=== PATIENT | female | born 1935 | race Caucasian/White ===

== ENCOUNTER 2017-02-05 15:05 | Observation (INO) | payer MEDICARE, BC ==
[2017-02-07] MEDS ORDERED: KLONOPIN DPS0.5 MG PO (10:37)
[2017-02-07] MEDS ORDERED: LOTENSIN DPS20 MG PO (10:37)
[2017-02-07] MEDS ORDERED: CARDIZEM60 MG PO (10:37)
[2017-02-07] MEDS ORDERED: ELIQUIS5 MG PO (10:38)
[2017-02-07] MEDS ORDERED: ATENOLOL50 MG PO (10:38)
[2017-07-14] MEDS ORDERED: THERAPEUTIC MUL1 TAB PO (10:31)
[2017-07-14] MEDS ORDERED: LOPRESSOR DPS50 MG PO (10:31)
[2017-07-14] MEDS ORDERED: HYDROCHLOROTHIA25 MG PO (10:32)
[2017-07-14] MEDS ORDERED: SENOKOT DPS8.6 MG PO (10:32)
[2017-07-14] MEDS ORDERED: CARTIA XT120 MG PO (10:32)
[2017-07-14] MEDS ORDERED: VITAMIN D31000 UNI1 PO (10:33)
[2017-07-14] MEDS ORDERED: NORCO 5-325 TA1 EACH PO (10:33)
[2017-07-14] MEDS ORDERED: COLACE-DPS100 MG PO (10:33)
== END 2017-02-06 14:52 | disposition home or self-care (01) ==
DX: I48.0 Paroxysmal atrial fibrillation (principal); I10 Essential (primary) hypertension; I35.0 Nonrheumatic aortic (valve) stenosis; Z88.2 Allergy status to sulfonamides; Z88.6 Allergy status to analgesic agent; Z79.899 Other long term (current) drug therapy; Z96.652 Presence of left artificial knee joint

== ENCOUNTER 2017-02-23 08:03 | Day surgery (SDC) | payer MEDICARE, BC ==
[~2017-02-23] VITALS: Ht 162.6 cm; Wt 81.6 kg
--- NOTE | ~2017-02-23 | CATH ---
Cardiac Diagnostic Report Demographics Patient Name ATIF Huerta Gender Female Date of 1935 Age 81 year(s) Patient Number [id number] Date of Study 02/23/2017 Visit Number [id number] Room Number Corporate ID Ht 162.56 cm Wt 83.01 kg Accession Number [id number] BSA 1.88 m kg/m Referring Norma Spencer MD Primary Physician Physician King Kemar Cabrera MD Performing King Kemar Cabrera MD Secondary Physician Physician Diagnostic King Kemar Cabrera MD Assisting Physician Physician Interventional Physician Continuous Towel Roller Physician Findings and Conclusions Diagnostic Findings and Conclusion 1. Non-obstructive CAD Diagnostic Recommendations 1. Risk factor modifications Procedure Description The patient was brought to the diagnostic cardiac catheterization laboratory in the fasting, non-sedated state. Informed consent was obtained in the written and verbal form after the risks and benefits were explained. The patient had no further questions and agreed to proceed. The planned puncture-incision site(s) were shaved and prepped with ChloraPrep and draped in the usual sterile manner. Conscious sedation, supplemental oxygen, and pain control medications were delivered by a registered nurse under physician guidance. Surface ECG rhythm, blood pressure measurement, and pulse oximetry were monitored throughout the procedure. Arterial access. The right radial access site was infiltrated with lidocaine. The vessel was entered with the Seldinger technique. A 6F sheath was advanced into the vessel and used for catheter placement. Radial cocktail was administered per protocol. Selective left coronary angiography. A JL 3.5 catheter was advanced into the left coronary vessel ostium under Fluoroscopic guidance. Contrast was injected by hand. Images were obtained in multiple projections. Selective right coronary angiography. A JR4 catheter was advanced into the right coronary vessel ostium under fluoroscopic guidance. Contrast was injected by hand. Images were obtained in multiple projections. Left heart catheterization. A TIG catheter was advanced across the aortic valve to the left ventricle under fluoroscopic guidance. Resting hemodynamics were obtained. Arterial artery hemostasis was achieved with a TR band. The patient was transferred to a regular nursing floor via cart accompanied by a nurse. The patient left the laboratory in stable condition. Diagnostic Cath Status: Elective Procedure Procedure Type Diagnostic procedure:Angiography:, Coronary Angios w/[facility] Indications: Atrial fibrillation, Abnormal nuclear perfusion test and Hypertension. The procedure was explained in detail to the patient. Risks, complications and alternative treatments were reviewed. Written consent was obtained. Medications Reviewed with Patient prior to Procedure. Complications: No Complication. Angiographic Findings Dominance: Left Cardiac Arteries and Lesion Findings LMCA: Normal (0% Stenosis). LAD: Abnormal. Lesion on Mid LAD: 50% stenosis . LCx: Abnormal and Minor Luminal Irregularities.Dominant RCA: Normal (0% Stenosis). Coronary Tree Procedure Data Procedure Date Date: 02/23/2017Start: 10:41 AM Entry Locations - Percutaneous access was performed through the Right Radial artery (Primary location). A 6 Fr sheath was inserted. Hemostasis was successfully obtained using a TR band. Procedure Medications Order and Administration + + +-------+--------+ !Time !Medication !Dosage !Route ! + + +-------+--------+ !02/23/2017 !Versed !1 mg !I.V. ! !10:20 AM ! ! ! ! + + +-------+--------+ 02/23/2017 !Fentanyl !25 mcg !I.V. ! !10:20 AM ! ! ! ! + + +-------+--------+ 02/23/2017 !Sodium Chloride !10 ml !I.V. ! !10:21 AM ! ! ! ! + + +-------+--------+ !02/23/2017 !Oxygen !4 l/min!NC ! !10:25 AM ! ! ! ! + + +-------+--------+ !02/23/2017 !Versed !1 mg !I.V. ! !10:33 AM ! ! ! ! + + +-------+--------+ !02/23/2017 !SF Radial Cocktail: 200mcg Nitro, 2.5 mg ! !I.A. ! !10:38 AM !Verapamil, 5000u Heparin ! ! ! + + +-------+--------+ Devices Used - A6F TIG CATHETERwas used for:Left coronary angiography. - ACATH 6FR FL3.5 CATHETER 100CMwas used for:Left coronary angiography. - ACATH 6F FR4 CATHETER 100CMwas used for:Right coronary angiography. Contrast Material - Isovue 56167 ml Fluoroscopy Time: Diagnostic: 3:36 minutes. Total: 3:36 minutes. Fluoroscopy Dose: Diagnostic: 453 mGy. Total: 453 mGy. Estimated Blood Loss: 10 ml. Medical History Performed Procedures and Imaging Results - Stress testing with SPECT MPIwas performed on 02/14/2017. Results were: Positive. Risk/Extent of ischemia was: Intermediate risk. Allergies - Morphine. - Sulfa. Risk Factors The patient risk factors include:hypertension, last creatinine: 1 mg/dl and creatinine clearance: 57.82 ml/min. Admission Data Admission Date: 02/23/2017 Admission Time: 08:03 AM Admit Source: Other Insurance Payors: Medicare. Clinical Evaluation Leading to Procedure - There were no CAD presentation symptoms. - There were no anginal symptoms. Anti-anginal medications were prescribed during the past two weeks. The medications are: Beta Blockers and Ca channel Blockers. VA LV function assessed as:Normal. Ejection Fraction - 02/23/2017 - Method: LV gram. EF%: 60. Hemodynamics Condition: Rest O2 Consumption: Estimated: 151.19Heart Rate: 46 bpm Pressures (mmHg) +-----+ + !Site !Pressure ! +-----+ + !LV !108/-1 ,5 ! +-----+ + !AO !101/48 (68) ! +-----+ + !LV !113/-1 ,6 ! +-----+ + !AO !71/41 (53) ! +-----+ + !AO !91/40 (57) ! +-----+ + !AO !99/33 (44) ! +-----+ + Valve Gradients and Areas + +---------+---------+---------+ +---------+ + !Valve !Peak !Mean !Area !Index !Flow !Source ! + +---------+---------+---------+ +---------+ + !Aortic !11 !15 ! ! ! ! ! + +---------+---------+---------+ +---------+ + !Aortic !11 !15 ! ! ! ! ! + +---------+---------+---------+ +---------+ + Shunts Oxygen Values O2 Consumption 151.19 Discharge Data Discharge Date: 02/23/2017 Hospital Status: Outpatient Signatures
[~2017-02-23 08:03] MED LIST: ATENOLOL50 MG PO; CARDIZEM60 MG PO; ELIQUIS5 MG PO; KLONOPIN DPS0.5 MG PO; LOTENSIN DPS20 MG PO
[2017-07-14] MEDS ORDERED: LOPRESSOR DPS50 MG PO (10:31)
[2017-07-14] MEDS ORDERED: THERAPEUTIC MUL1 TAB PO (10:31)
[2017-07-14] MEDS ORDERED: CARTIA XT120 MG PO (10:32)
[2017-07-14] MEDS ORDERED: HYDROCHLOROTHIA25 MG PO (10:32)
[2017-07-14] MEDS ORDERED: SENOKOT DPS8.6 MG PO (10:32)
[2017-07-14] MEDS ORDERED: VITAMIN D31000 UNI1 PO (10:33)
[2017-07-14] MEDS ORDERED: NORCO 5-325 TA1 EACH PO (10:33)
[2017-07-14] MEDS ORDERED: COLACE-DPS100 MG PO (10:33)
== END 2017-02-23 14:37 | disposition home or self-care (01) ==
LOC: SSS 08:03
PROC: 4A023N7 Measurement of Cardiac Sampling and Pressure, Left Heart, Percutaneous Approach (ICD-10-PCS; principal; 2017-02-23)
DX: I25.10 Atherosclerotic heart disease of native coronary artery without angina pectoris (principal); I48.0 Paroxysmal atrial fibrillation; I10 Essential (primary) hypertension; R93.1 Abnormal findings on diagnostic imaging of heart and coronary circulation; Z88.5 Allergy status to narcotic agent; Z87.19 Personal history of other diseases of the digestive system; Z98.890 Other specified postprocedural states